=== PATIENT | female | born 1990 | race Caucasian/White ===

== ENCOUNTER 2016-11-06 15:15 | Emergency (ER) | payer OTHER ==
--- NOTE | ~2016-11-06 | US67 ---
[facility] A Service of [facility] & [facility] RADIOLOGY TEXT RESULTS PATIENT: TAYLOR LOUIS LOCATION: [facility] : [birth year] UNIT #: [id number] AGE: [address]: Amelie Ernst MD SEX: F ORDER DR: [id number] [facility] [address] [place], [place] [address] [id number] E MR#: [id number] #: [id number] NAME: TAYLOR LOUIS : 1990 SEX: F STUDY DATE/TIME: 11/06/2016 16:35 UNIT: [facility] ROOM: STUDY DESCRIPTION: US Gallbladder Attending Physician: Amelie Ernst M.D. Ordering Physician: Amelie Ernst M.D. Primary Care Physician: Primary Care Physician No MEDICAL IMAGING REPORT This report is preliminary unless electronic signature is present EXAM Gallbladder ultrasound 11/06/2016 HISTORY Pain. Right upper quadrant pain for 5 years. Increased 3 days ago. Childbirth x1 year ago. FINDINGS Real-time ultrasonography of the right upper quadrant performed. No comparisons. The visualized portions of pancreas are unremarkable. Much of pancreas is obscured by bowel gas artifact and could be assessed with CT if clinically warranted. The liver is mildly enlarged measuring about 18.5 cm in craniocaudal extent. Slight increase in overall echogenicity of parenchyma suggesting fatty infiltration. In the left hepatic lobe, there is a echogenic focus measuring 2.2 cm x 2 cm x 1.75 cm. The sonographic appearance is indeterminate but suggestive of hepatic hemangioma. This is best further characterized with multiphase contrast-enhanced MRI or CT. Certainly comparison with any prior imaging of the abdomen would be useful. No other focal hepatic parenchymal abnormalities are seen. There is no intra- or extrahepatic biliary ductal dilatation. Common bile duct measures 3 mm in diameter. The gallbladder is not pathologically dilated. There are multiple shadowing gallstones. No pericholecystic fluid. No gallbladder wall thickening. The gallbladder wall is measured as 1.6 mm in thickness. There is no compelling ultrasound evidence of cholecystitis. The right kidney measures 11.44 cm in greatest length. No hydronephrosis or nephrolithiasis. No cystic or solid mass lesion and no perinephric fluid collection. IMPRESSION 1. Multiple shadowing gallstones in nondilated gallbladder. No gallbladder wall thickening or pericholecystic fluid. There is no STS. [facility] A Service of [facility] & [facility] RADIOLOGY TEXT RESULTS PATIENT: TAYLOR LOUIS [id number] [birth year] UNIT #: [id number] AGE: [address]: Amelie Ernst MD SEX: F ORDER DR: compelling evidence of acute cholecystitis on basis of this examination. There is no biliary ductal dilatation. The common bile duct measures approximately 3.3 mm in diameter. 2. Probable diffuse fatty infiltration of liver with mild hepatic enlargement. Liver measures approximately 18.5 cm in craniocaudal extent. 3. Rounded hyperechoic focus in left hepatic lobe measuring up to 2.26 cm in maximum diameter. Nonspecific ultrasound appearance but probably representing an hemangioma. In absence of prior studies characterizing this finding, it is best further evaluated with multiphase contrast-enhanced MRI or CT on an elective basis. 4. Right kidney normal. 5. Visualized pancreas unremarkable but much of pancreas is obscured by bowel gas artifact. If clinically warranted, pancreas could be further assessed with CT or MRI. Dictated by... Marcos Larsen M.D. THIS IS AN ELECTRONICALLY VERIFIED REPORT Marcos Larsen M.D. at 11/08/2016 5:27 PM Rogelio TD: 11/07/2016 07:56 JOB #: [id number] MEDICAL IMAGING REPORT COPY
[~2016-11-06 15:15] MED LIST: ASPIRIN81 M1 PO; ASPIRIN81 M2 PO; BACTRIM DS TABL1 TA1 PO; BACTRIM DS TABL1 TA2 PO; CIPRO PO; MACROBID100 MG PO; NAPROXEN PO; NO MEDICATIONS; PHENERGAN25 M1 PO; PRENATAL1 TA1 PO; PYRIDIUM100 MG PO; REGLAN10 MG PO; VOLTAREN50 MG PO; ZOFRAN8 MG PO; [UNRECOGNIZED DRUG - REMARK]; [UNRECOGNIZED DRUG - REMARK] PO
[2016-11-06 15:21] LABS: URINE SOURCE CLEAN CATCH
[2016-11-06 15:36] LABS: URINE APPEARANCE CLOUDY; URINE BILIRUBIN NEG (NEG); URINE BLOOD 3+ (NEG); URINE COLOR YELLOW; URINE GLUCOSE NEG (NEG); URINE KETONE NEG (NEG); URINE LEUKOCYTE ESTERASE 2+ (NEG); URINE NITRATE NEG (NEG); URINE PH 6.5 (5-8); URINE PROTEIN TRACE (NEG); URINE SPECIFIC GRAVITY 1.023 (1.003-1.035)
[2016-11-06 15:39] LABS: CULTURE INDICATED? YES; URINE BACTERIA AUWI 2+ (NEGATIVE); URINE SQUAMOUS EPITHELIAL CELL MANY /[HPF]; UWBCS1 AUWI 50-100 (0-5)
[2016-11-06 15:47] LABS: BASOPHIL% 0.4 % (0-2.5); EOSINOPHIL# 0.2 X10e3 (0-0.7); EOSINOPHIL% 1.8 % (0.0-7.0); HEMOGLOBIN 13.2 gm/dL (12.0-16.0); LYMPHOCYTE# 1.9 X10e3 (1.0-3.5); LYMPHOCYTE% 21.4 % (17.0-45.0); MEAN CELL VOLUME 91.7 FL (83-96); MEAN CORPUSCULAR HGB CONC 33.8 g/dL (30-36); MEAN PLATELET VOLUME 9.9 FL (6.5-11.5); MONOCYTE# 0.4 X10e3 (0-1.0); MONOCYTE% 4.6 % (3.0-12.0); NEUTROPHIL# 6.3 X10e3 (1.5-7.1); NEUTROPHIL% 71.8 % (40-75); PLATELET COUNT 225 X10e3 (140-420); RED BLOOD COUNT 4.26 X10e (3.90-5.30); RED CELL DISTRIBUTION WIDTH 12.7 % (11.0-15.5); WHITE BLOOD COUNT 8.8 X10e3 (4.0-10.5)
[2016-11-06 15:48] LABS: U HYALINE CASTS AUWI 0-2 /[LPF]
[2016-11-06 15:49] LABS: DIFF IND NO
[2016-11-06 16:10] LABS: ALBUMIN SERUM 4.2 g/dL (3.5-5.0); ALKALINE PHOSPHATASE 62 U/L (32-92); ALT (SGPT) 13 U/L (10-40); AMYLASE 13 U/L (0-46); AST (SGOT) 12 U/L (10-42); BILIRUBIN, DIRECT 0.1 mg/dL (0.0-0.2); BILIRUBIN,INDIRECT 0.5 mg/dL (0.0-0.9); BILIRUBIN,TOTAL 0.6 mg/dL (0.2-2.0); BLOOD UREA NITROGEN 9 mg/dL (9-23); CALCIUM SERUM 8.8 mg/dL (8.4-10.2); CARBON DIOXIDE 25 mmol/L (22-31); CHLORIDE 108 mmol/L (100-111); CREATININE SERUM 0.4 mg/dL (0.6-1.4); GLOM FILT RATE Estimated ABOVE60 mL/min (>60); GLUCOSE FASTING 130 mg/dL (70-110); LIPASE 17 U/L (22-51); POTASSIUM 3.2 mmol/L (3.5-5.1); SODIUM 140 mmol/L (135-145)
== END 2016-11-06 18:40 | disposition home or self-care (01) ==
LOC: CED 15:15
PROVIDERS: Emergency Medicine
DX: N39.0 Urinary tract infection, site not specified (principal); K80.20 Calculus of gallbladder without cholecystitis without obstruction; Z79.899 Other long term (current) drug therapy
CPT/HCPCS: 36415; 76705; 80048; 80076; 81003; 82150; 83690; 84703; 85025; 87086; 96374; 96375; 99284; J1885; J2405